=== PATIENT | male | born 1995 | race Two or more races ===

== ENCOUNTER 2019-07-05 17:11 | Emergency (ER) | payer OTHER ==
[~2019-07-05] VITALS: Ht 177.8 cm; Wt 98.9 kg
[2019-07-05] MEDS ORDERED: FAMOTIDINE 20 MG TABLET ONE (17:33)
--- NOTE | 2019-07-05 17:39 | NUR ---
Pt stung by wasp RFA 1hr VERIFICATION LEAD. Has hx of bee sting allergy & took 50mg of benadryl po 15 min later. Was told he needs epi pen but does not have RX for one. Arrives c/o throat swelling & itchy hives on ABD. Lungs CTA, 99% RA sat, no throat swelling noted, eupneic. Placed on continuous SPO2 monitors, medicated w/ pepcid & prednisone, call light within reach, will continue to monitor.
[2019-07-05] MEDS ORDERED: FAMOTIDINE 20 MG TABLET PO ONE (18:00)
--- NOTE | 2019-07-05 18:34 | NUR ---
VSS, itching improved. Continue to monitor.
[2019-07-05 18:37] VITALS: BP 122/79
--- NOTE | 2019-07-05 18:55 | NUR ---
report received from mae simmons.
== END 2019-07-05 19:24 | disposition home or self-care (01) ==
LOC: ED 18:17
DX: L50.0 Allergic urticaria (principal); T63.441A Toxic effect of venom of bees, accidental (unintentional), initial encounter; Y92.410 Unspecified street and highway as the place of occurrence of the external cause
CPT/HCPCS: 99283; J7512